=== PATIENT | female | born 1990 | race Caucasian/White ===

== ENCOUNTER 2017-01-08 17:13 | Outpatient (CLI) | payer MEDICAID, OTHER ==
[~2017-01-08] VITALS: Ht 167.6 cm; Wt 67.0 kg
[2017-01-08 17:24] VITALS: BP 113/72; PULSE 75; RESP 18; Ht 167.6 cm; Wt 67.0 kg
--- NOTE | 2017-01-08 18:05 | RADRPT ---
PROCEDURE: US OB biophysical profile. CLINICAL INDICATION: decreased movements TECHNIQUE: Multiple sonographic images of the pelvis were obtained. The images were reviewed on a PACS workstation. COMPARISON: No prior studies are available for comparison. FINDINGS: There is a single viable intrauterine gestation. Cardiac activity is present with 150 beats per min guero. There is a vertex presentation. The placenta is anterior. There is no evidence of placental abruption. There is a normal amount of amniotic fluid with an JUNE = 10.7 cm. Biophysical profile: movement 2/2 tone 2/2. breathing 2/2 JUNE 2/2 Total 04/30 RPTAT: AA . IMPRESSION: Normal biophysical profile. . .Ricki Castillo MD, MD Date Time Electronically viewed and signed by .Ricki Castillo MD, MD on 01/08/2017 18:05 .S/
[2017-01-08] MEDS ORDERED: PRENAT PO (19:01)
--- NOTE | 2017-01-08 19:30 | TRIAGE ---
OB Triage Datetime Report Generated by CPN: 01/08/2017 19:30 Datetime: 01/08/2017 18:29 Time of Arrival: 01/08/2017 17:06 EGA: 28.4 Arrived By: Ambulatory Arrived From: Office Chief Complaint: Decreased movement Movement: Present Contractions: Denies/Absent Rupture of Membranes: Denies Vaginal Bleeding: Normal Show Vaginal Discharge: Denies Recent Sexual Intercouse: Denies Abdominal Trauma: Not Applicable Patient Complaints: None Time Provider Notified: 01/08/2017 18:20 Provider Notified: Eshaghian Initial Plan: NST, BPP/ JUNE Datetime: 01/08/2017 17:45 Labor Evaluation Monitor Mode: External Resting Tone Coqui: Relaxed Heart Rate FHR Baseline Rate: 140 Monitor Mode: External US FHR Baseline Changes: No Baseline Change Variability: Moderate 6-25 bpm Accelerations: 15X15 Decelerations: None Category: Category I Pain Assessment Pain Presence: None/Denies Datetime: 01/08/2017 17:15 Assessment Type: Triage Maternal Assessment Level of Consciousness: Fully Conscious DTR's/Clonus: DTRs 2+; No Clonus Headache: Denies Blurred Vision: No Respiratory Effort: Unlabored; Regular Rhythm; Equal Expansion Breath Sounds, Left: Clear and Equal Breath Sounds, Right: Clear and Equal Nausea/Vomiting: Denies RUQ Epigastric Pain: Denies Lower Extremities Edema: None Degree: None Upper Extremities Edema: None Degree: None Facial Edema: None Fall Risk Assessment History of Falling: (0) No Secondary Diagnosis: (0) No Ambulatory Aid: (0) Bedrest/Nurse Assist IV Therapy: (0) No Gait: (0) Normal/Bedrest/Immobile Mental Status: (0) Oriented to Own Ability Fall Score: 0 Fall Risk Score Definition: No Risk: No action required Datetime: 01/08/2017 17:13 Stage of : OB Triage
--- NOTE | 2017-01-09 09:20 | CONS ---
Date/Time of Note Date/Time of Note DATE: 01/09/17 TIME: 09:12 Consultation Date/Type/Reason Admit Date/Time January 08, 2017 OB triage consult Reason for Consultation This patient is a 26 years old 1 para 0 with estimated date of confinement of March 29, 2017 which makes her 28 weeks and 4 days today She came to OB triage clinic complaining of low movement for 2 days on examination the abdomen was soft basically normal to her contraction heart tone was extremities were normal no her vital signs was reviewed which were normal Blood pressure 113/72 pulse rate 75 respiration 18 pressure 97.9 her general physical examination was normal Constitutional: No chills, No diaphoresis, No disoriented, No febrile, No improved, No no complaints, No other, No poor po, No requiring IVF, No requiring O2 Eyes: No discharge, No no complaints, No other, No pain, No redness, No visual change ENT: No bleeding, No congestion, No discharge, No dysphagia, No no complaints, No other, No pain, No sore throat Respiratory: No cough, No no complaints, No other, No pain, No pleuritic pain, No shortness of breath, No sputum, No wheezing Cardiovascular: No chest pain, No edema, No lightheadedness, No no complaints, No orthopenea, No other, No palpitations, No paroxysmal nocturnal dyspnea Gastrointestinal: No blood, No constipation, No decreased appetite, No diarrhea , No flatus, No nausea, No no complaints, No other, No pain, No passing stool, No vomiting Genitourinary: other (Due to very early in and the no contraction pelvic examination was not performed), No bleeding, No discharge, No dysuria, No flank pain, No hematuria, No no complaints Musculoskeletal: No back pain, No bone/joint pain, No neck pain, No no complaints, No other, No restricted range of motion, No swelling Neurologic: No confusion, No dizziness, No focal-weakness, No headache, No no complaints, No other, No seizure, No syncope Endocrine: No dry skin, No no complaints, No other, No polydypsia, No polyuria , No temp intolerance Additional Comments OB ultrasound was requested and a report was there was a one single viable intrauterine gestation with heart rates of 150/min in vertex presentation placenta was anterior no evidence of abruptio the JUNE was 10.7 sent With these positive finding patient was reassured And was discharged home to be seen by her physician in 3 days Social History Smoking Status: Former smoker Exam/Review of Systems Vital Signs Vitals Vital Signs Date Time Temp Pulse Resp B/P Pulse Ox O2 Delivery O2 Flow Rate FiO2 01/08/17 17:24 97.9 75 18 113/72 Room Air VALENTINA CONN MD Jan 09, 2017 09:19
== END 2017-01-08 18:55 | disposition home or self-care (01) ==
LOC: L-D 17:13 → OBT 17:13
PROVIDERS: ATTEND Obstetrics & Gynecology
DX: O36.8130 Decreased fetal movements, third trimester, not applicable or unspecified (principal); Z3A.28 28 weeks gestation of pregnancy; Z87.891 Personal history of nicotine dependence
CPT/HCPCS: 76818